=== PATIENT | female | born 2000 | race Hispanic/Latino ===

== ENCOUNTER 2023-03-11 18:40 | Emergency (ER) | payer OTHER ==
[2023-03-11] MEDS ORDERED: Ketorolac Tromethamine 30 MG/ML VIAL ONE (19:25)
== END 2023-03-11 19:42 | disposition home or self-care (01) ==
LOC: CSHERS 18:40
DX: N92.0 Excessive and frequent menstruation with regular cycle (principal)
CPT/HCPCS: 96372; 99283; J1885